=== PATIENT | female | born 1970 | race Caucasian/White ===

== ENCOUNTER → 2016-12-19 | Outpatient (CLI) | payer OTHER ==
[2016-12-18 15:40] VITALS: BMI 23.6
[2016-12-19 12:37] VITALS: BP 99/66; PULSE 80; RESP 18; TEMP 98.3
--- NOTE | 2016-12-19 13:08 | P.HPIM ---
History of Present Illness H&P Date: 12/19/16 Chief Complaint: low back and right leg pain This is a 46-year-old patient referred by Dr. Azul for chronic pain in low back and lateral aspect of RLE with numbness/tingling after back surgery in August 2016 for herniated disc. Patient has been taking medications from primary care physician including Flexeril, meloxicam, gabapentin medications with some relief. Patient denies adverse drug effects from medications. Patient also denies new-onset weakness, bowel/bladder incontinence, or any other signs or symptoms of cauda equina syndrome. There are no signs of acute intoxication, and no indications of medication diversion or overuse. Patient notes that pain worsens significantly with sitting and improves with standing, walking and medication. Patient has used several types of medications for pain, including NSAIDS, GABAPENTIN. Patient HAS had surgery (L5 laminectomy). Patient HAS NOT had injections previously. Patient HAS had physical therapy recently without relief. In addition to above, 13-point review of systems is also negative for chest pain , shortness of breath, changes in vision, changes in hearing, new onset weakness , abdominal pain, diarrhea, extreme fatigue, malaise, fever, skin changes, homicidal or suicidal ideation, or bowel or bladder incontinence. Vital Signs: Reviewed in EMR Gen: WDWN, AAOx3, NAD HEENT: NCAT, EOMI, hearing grossly normal Pulm: resp unlabored Abd: soft, NT, ND Neck: supple, trachea midline ROM in flexion lumbar spine: reduced ROM in extension lumbar spine: full Lumbar paravertebral tenderness: + R side Facet loading: neg SI joint tenderness: neg Marvin's test: neg Straight leg raise: + RLE at 5 degrees Neuro: CN II-XII grossly intact, muscle strength lower extremities PRESERVED Past Medical History Past Medical History: Musculoskeletal Disorder, Osteoarthritis (OA) Additional Past Medical History / Comment(s): LUMBAR DDD; HERNIATED DISC EXC 2016; PAIN DOWN RT SCIATIC, LEG; NT RT TOES OCC. OA KNEES. History of Any Multi-Drug Resistant Organisms: None Reported Past Surgical History: Back Surgery, Section, Orthopedic Surgery Additional Past Surgical History / Comment(s): EXC LUMBAR DISC 08/2016. RT KNEE SURG. Past Anesthesia/Blood Transfusion Reactions: No Reported Reaction Past Psychological History: No Psychological Hx Reported Smoking Status: Current every day smoker Past Alcohol Use History: None Reported Additional Past Alcohol Use History / Comment(s): SMOKES 1 PPD X20 YEARS Past Drug Use History: None Reported - Past Family History Mother Family Medical History: No Reported History Medications and Allergies Home Medications Medication Instructions Recorded Confirmed Type Gabapentin [Neurontin] 300 mg PO TID 12/19/16 12/19/16 History Ibuprofen 200 mg PO PRN 12/19/16 History Medroxyprogesterone Acetate 150 mg IM 12/19/16 History [Depo-Provera] Meloxicam 7.5 mg PO DAILY 12/19/16 12/19/16 History tiZANidine HCL 4 mg PO TID PRN 12/19/16 12/19/16 History Allergies Allergy/AdvReac Type Severity Reaction Status Date / Time No Known Allergies Allergy Verified 12/18/16 15:26 Physical Exam Vitals: Vital Signs Temp Pulse Resp BP Pulse Ox 12/19/16 12:34 98.3 F 80 18 99/66 97 Intake and Output 12/18/16 12/19/16 12/19/16 22:59 06:59 14:59 Other: Weight 58.513 kg Results Comments: MRI lumbar spine dated 10/31/2016 demonstrates mild facet degenerative changes bilaterally the L3-L4 level and preserved spinal canal. The L4-L5 level to broad-based disc bulge and mild central degenerative changes bilaterally but a preserved spinal canal and bilateral neural foramina but are patent. At L5-S1 level there is a new right-sided laminectomy defect with the persistent broad- based paracentral disc protrusion minimally effacing the anterior thecal sac. There is enhancing scar tissue surrounding the central right S1 nerve root at this level. Assessment and Plan (1) Lumbar disc herniation Status: Acute (2) Lumbar postlaminectomy syndrome Status: Acute (3) Epidural adhesions Status: Acute Plan: 1. Explanation: Opioid and psychological risk scores were reviewed. Diagnoses , prognoses, and multiple treatment options including but not limited to physical therapy, interventional therapies, adjuvant medical therapies, narcotic medication therapies, and surgery were discussed with the patient and all questions were answered to the patient's satisfaction. 2. Opioid agreement: no opioids prescribed today 3. Counseling: The patient was counseled extensively on BODY MASS INDEX, EXERCISE. Specifically, the patient was instructed regarding the importance of smoking cessation, weight control, and exercise in the context of both chronic pain and overall health. 4. Procedures: caudal ARTIE with lysis 5. Consultations: none 6. Investigations: none 7. Medications: none prescribed 8. Disposition: f/u for procedure as scheduled PQRS measures: 1-Patient's medications are documented in the chart. 2-Tobacco use is negative 3-Patient has not had a pneumococcal vaccine. 4-Advanced care planning discussed, patient unable to give. 5-Opioid contract NOT signed with the patient. 6-Pain positive, follow-up visit or procedure scheduled 7-Patient's blood pressure measured and documented, and patient will follow up with the primary care due to hypertension. 8-Patient's weight was measured, and body mass index ABOVE the normal limits, and counseling was done. Patient instructed to follow up with PCP. 9-Patient WAS NOT identified as an unhealthy alcohol user. Time with Patient: Greater than 30
== END ==
LOC: PNWHC3 12:16
PROVIDERS: ATTEND Anesthesiology
DX: M51.26 Other intervertebral disc displacement, lumbar region (principal); M96.1 Postlaminectomy syndrome, not elsewhere classified; G96.12 Meningeal adhesions (cerebral) (spinal); Z79.899 Other long term (current) drug therapy
CPT/HCPCS: 99211

== ENCOUNTER 2016-12-24 08:27 | Day surgery (SDC) | payer OTHER ==
[2016-12-20 15:27] VITALS: BMI 23.6
[~2016-12-24 08:27] MED LIST: LACTATED RINGERS 1,000 ML IV SCH
[2016-12-24 08:50] VITALS: TEMP 98.2
[2016-12-24] MEDS ORDERED: LACTATED RINGERS 1,000 ML IV ONE (09:00)
[2016-12-24] MEDS ORDERED: LIDOCAINE 1% 20 ML VIAL (10MG/ML) FOR IV START INTRADERMA ONE (09:00)
--- NOTE | 2016-12-24 09:29 | P.PCN ---
Date of Procedure: 12/24/16 Preoperative Diagnosis: Failed back surgery syndrome Postoperative Diagnosis: Same as above Procedure(s) Performed: Caudal epidural steroid injection under fluoroscopic guidance with lysis of adhesions Anesthesia: MAC (Moderate IV conscious sedation with Versed and fentanyl) Surgeon: Vladimir Aviles Pathology: none sent Condition: stable Disposition: PACU Description of Procedure: The patient was seen in the preoperative holding area consent was obtained then he was brought into the procedure room and placed in prone position. Skin was prepped with ChloraPrep and draped in a sterile manner. Lidocaine 1% was used to numb the skin up at the target point that was chosen as follows: The lateral view of fluoroscopy was used to identify the sacral hiatus and then after localizing the skin with lidocaine 1% I used 18-gauge epidural needle with a plastic sheath to go through the sacral hiatus and into the sacral canal and then injected 1 mL of Omnipaque for verification of needle tip position. After that the metal core of the needle was taken out and the plastic sheath was kept in the sacral canal. Then Racz catheter was introduced through the plastic sheath and into the epidural space at the sacral canal using the AP view of fluoroscopy up to L5-S1 level then I injected 2 MLS of Omnipaque which showed limited spread in the epidural space and after few back and forth movements of the Racz catheter I was able to introduce the needle one level higher to the L4- 5 level and then there was more spread of the Omnipaque after injecting 3 more mils of Omnipaque on the AP view of fluoroscopy. After that I injected 80 mg of Kenalog +2 MLS of Marcaine 0.25% +7 MLS of preservative-free normal saline to a total volume of 10 MLS in the epidural space. Patient tolerated procedure well. Of note: The Racz catheter was introduced to the right side of midline because most of the patient's pain is on the right side of the lower back and also down the right leg to the right foot . COMPLICATIONS: None.
[2016-12-24] MEDS ORDERED: IV FLUID CONTINUATION 1,000 ML IV ONE (09:34)
[2016-12-24 09:36] VITALS: RESP 16
--- NOTE | 2016-12-24 09:48 | FL ---
EXAMINATION TYPE: FL guided pain mgmt statistic DATE OF EXAM: 12/24/2016 CLINICAL HISTORY: Low back and sacral pain. TECHNIQUE: Fluoroscopy. COMPARISON: None. FINDINGS: Fluoroscopic guidance was provided during pain relief procedure performed by Dr. Aviles. A total of 14 seconds of fluoroscopic time was utilized during the procedure and two spot images are acquired. Images acquired shows needle localization at level of the sacrum from posterior inferior approach. IMPRESSION: As Above.
[2016-12-24 09:49] VITALS: BP 125/63; PULSE 70
== END 2016-12-24 10:03 | disposition home or self-care (01) ==
LOC: ORPAIN 08:27
PROVIDERS: ATTEND Anesthesiology
DX: M96.1 Postlaminectomy syndrome, not elsewhere classified (principal); M51.16 Intervertebral disc disorders with radiculopathy, lumbar region; M19.90 Unspecified osteoarthritis, unspecified site; F17.200 Nicotine dependence, unspecified, uncomplicated; Z79.899 Other long term (current) drug therapy
CPT/HCPCS: 81025; 62323; J2250; J3301; Q9965; J3010; C1894; 62264; 99152; 99153

== ENCOUNTER 2017-01-10 06:17 | Day surgery (SDC) | payer OTHER ==
[2017-01-09 09:15] VITALS: BMI 23.6
[2017-01-10 06:35] VITALS: TEMP 98
[2017-01-10] MEDS ORDERED: LACTATED RINGERS 1,000 ML IV ONE (06:38)
[2017-01-10] MEDS ORDERED: LIDOCAINE 1% 20 ML VIAL (10MG/ML) FOR IV START INTRADERMA ONE (06:45)
[2017-01-10] MEDS ORDERED: LACTATED RINGERS 1,000 ML IV SCH (07:00)
[2017-01-10] MEDS ORDERED: IV FLUID CONTINUATION 1,000 ML IV ONE (07:20)
--- NOTE | 2017-01-10 07:27 | P.PCN ---
Date of Procedure: 01/10/17 Procedure(s) Performed: PREOP DIAGNOSIS: 1- failed back surgery syndrome POSTOP DIAGNOSIS:1- failed back surgery syndrome PROCEDURE: Caudal epidural steroid injection with epidurolysis and epidurogram under fluoroscopic guidance ANESTHESIA: Local with 1% lidocaine 3 ml ; IV sedation with Versed 2 mg and fentanyl 150 g EBL: Minimal. PROCEDURE INDICATION: The patient with post-laminectomy syndrome with low back pain and radiculopathy radiating down in both legs, here for a caudal epidural steroid injection with epidurolysis. PROCEDURE DESCRIPTION: The patient was seen and identified in the preoperative area. Risks, benefits, complications, and alternatives were discussed with the patient. The patient agreed to proceed with the procedure and signed the consent. IV was started, and vital signs were stable. Patient was taken to the OR and time out was completed. The patient was placed in the prone position on procedure table and a pillow was placed under the abdomen to reduce lumbar lordosis. The lumbosacral area was prepped and draped in the usual sterile fashion. Vital signs were closely monitored during the procedure. lateral view and the anterior-posterior plates of the sacrum were identified with infiltration of the area overlying the sacral hiatus with 1% lidocaine .A 17 gauge RK epidural needle was used to advance through the sacral hiatus into the caudal epidural space. Omnipaque 180 dye. 2cc was injected and the position of the needle was verified to be in the midline. A Racz catheter was introduced into the epidural space and was advanced towards the L5-S1 interspace under direct fluoroscopic guidance. Multiple passes were made with the catheter for lysis of epidural adhesions. Kenalog 80 mg with 3ml of preservative free Lidocaine 1% and 5 ml of preservative free normal saline was injected slowly. Additional spread was seen to L4 under fluoroscopy. The needle and the catheter were withdrawn intact. EPIDUROGRAM: Omnipaque 180 mg dye 2 ml was injected with spread of the dye into the caudal epidural space and with spread cutoff at L5 prior to epidurolysis. Post epidurolysis dye 2 ml was injected and spread was seen to L3- 4.There was further spread of the solution together with the dye above the L3 COMPLICATIONS: None. DISPOSITION / PLANS: The patient was placed in a supine position and transferred to the recovery area in a stable condition for observation and was discharged from the recovery room after meeting discharge criteria. Home discharge instructions given to the patient by the staff. The patient was reexamined prior to discharge. The patient will schedule a follow up in the clinic in 2-4 weeks.
[2017-01-10 07:43] VITALS: BP 130/86; PULSE 75; RESP 18
--- NOTE | 2017-01-10 08:16 | FL ---
EXAMINATION TYPE: FL guided pain mgmt statistic DATE OF EXAM: 01/10/2017 CLINICAL HISTORY: Low back and sacral pain. TECHNIQUE: Fluoroscopy. COMPARISON: None. FINDINGS: Fluoroscopic guidance was provided during pain relief procedure performed by Dr. Santacruz . A total of 8 seconds of fluoroscopic time was utilized during the procedure and two spot images ar e acquired. Images acquired shows needle localization at level of sacrum from posterior inferior rosanna coreas. IMPRESSION: As Above.
== END 2017-01-10 08:00 | disposition home or self-care (01) ==
LOC: ORPAIN 06:17
PROVIDERS: ATTEND Specialist
DX: M96.1 Postlaminectomy syndrome, not elsewhere classified (principal)
CPT/HCPCS: 81025; 62264; J2250; J1100; Q9965; J3010; C1894; 99152

== ENCOUNTER 2017-02-27 07:53 | Day surgery (SDC) | payer OTHER ==
[2017-02-25 10:56] VITALS: BMI 23.8
[2017-02-27 08:57] VITALS: RESP 16; TEMP 98.6
--- NOTE | 2017-02-27 09:49 | P.PCN ---
Date of Procedure: 02/27/17 Preoperative Diagnosis: Failed back surgery syndrome Postoperative Diagnosis: Same as above Procedure(s) Performed: Caudal epidural steroid injection under fluoroscopic guidance with lysis of adhesions Anesthesia: MAC (Conscious sedation with IV fentanyl and Versed) Surgeon: Vladimir Aviles Pathology: none sent Condition: stable Disposition: PACU Description of Procedure: The patient was seen in the preoperative holding area consent was obtained then he was brought into the procedure room and placed in prone position. Skin was prepped with ChloraPrep and draped in a sterile manner. Lidocaine 1% was used to numb the skin up at the target point that was chosen as follows: The lateral view of fluoroscopy was used to identify the sacral hiatus and then after localizing the skin with lidocaine 1% I used 18-gauge epidural needle with a plastic sheath to go through the sacral hiatus and into the sacral canal and then injected 1 mL of Omnipaque for verification of needle tip position. After that the metal core of the needle was taken out and the plastic sheath was kept in the sacral canal. Then Racz catheter was introduced through the plastic sheath and into the epidural space at the sacral canal using the AP view of fluoroscopy up to L5-S1 level then I injected 2 MLS of Omnipaque which showed limited spread in the epidural space and after few back and forth movements of the Racz catheter there was more spread of the Omnipaque after injecting 3 more mils of Omnipaque on the AP view of fluoroscopy. After that I injected 40 mg of Kenalog +2 MLS of Marcaine 0.25% +7 MLS of preservative-free normal saline to a total volume of 10 MLS in the epidural space. Patient tolerated procedure well. Of note: The Racz catheter was introduced to the right side of midline because most of the patient's pain is on the right side of the lower back and also down the right leg to the right foot . COMPLICATIONS: None. DISPOSITION / PLANS: The patient was placed in a supine position and transferred to the recovery area in a stable condition for observation and was discharged from the recovery room after meeting discharge criteria. Home discharge instructions given to the patient by the staff. The patient was reexamined prior to discharge. The patient will schedule a follow up in the clinic in 2-4 weeks.
[2017-02-27] MEDS ORDERED: IV FLUID CONTINUATION 1,000 ML IV ONE (09:53)
[2017-02-27 10:09] VITALS: BP 117/78; PULSE 78
--- NOTE | 2017-02-27 12:11 | FL ---
Fluoroscopy INDICATION: Pain FINDINGS: Fluoroscopy time: 6 seconds. Images obtained: 2. IMPRESSIONS: 1. Documentation of fluoroscopy.
== END 2017-02-27 10:23 | disposition home or self-care (01) ==
LOC: ORPAIN 07:53
PROVIDERS: ATTEND Anesthesiology
DX: M96.1 Postlaminectomy syndrome, not elsewhere classified (principal); G96.12 Meningeal adhesions (cerebral) (spinal)
CPT/HCPCS: 81025; 62264; J2250; J3301; Q9965; J3010; C1894; 62323; 99152

== ENCOUNTER → 2017-03-25 | Outpatient (CLI) | payer OTHER ==
[2017-03-25 12:54] VITALS: BP 124/83; PULSE 103; RESP 18
--- NOTE | 2017-03-25 13:38 | P.PN ---
Subjective Progress Note Date: 03/25/17 Principal diagnosis: Lower back pain due to to lumbar spondylosis and right lumbar radiculopathy status post lumbar laminectomy. Vision had 3 caudal epidural steroid injection with lysis of adhesions and it looks like they did work for her. Pain today is only 2 out of 10 and it is mostly in the right lower back area with no radiation to the lower extremities. The patient denies any paresthesia in the lower extremities or any weakness. Objective - Vital Signs Vital signs: Vital Signs Temp Pulse 103 H 03/25/17 12:45 Resp 18 03/25/17 12:45 BP 124/83 03/25/17 12:45 Pulse Ox 103 H 03/25/17 12:45 Intake & Output 03/24/17 03/25/17 03/25/17 18:59 06:59 18:59 Weight 58.967 kg - Constitutional General appearance: Present: average body habitus, cooperative, no acute distress - EENT Eyes: Absent: abnormal pupil, anicteric sclerae, disc margins sharp, edentulous , EOMI, PERRLA, fundus normal, photophobia, dentition normal, poor dentition, ptosis, scleral icterus, normal appearance ENT: Absent: hard of hearing, hearing grossly normal, NA/AT, normal oropharynx, other, pharyngeal erythema, thrush, tonsillar exudates, tonsillar swelling - Respiratory Respiratory: bilateral: CTA - Cardiovascular Rhythm: regular - Psychiatric Psychiatric: Present: A&O x's 3, appropriate affect, intact judgment & insight Assessment and Plan Plan: Oriented to-year-old female with right lower back pain that has improved after 3 Epidural steroid injections. She is status post lumbar laminectomy in August 2016. Her pain is mild today and her neurologic examination is within normal limits. She does not have any tenderness around the right sacroiliac joint and no allodynia to touch around her small laminectomy scar. The patient will be seen in our clinic on an as-needed basis.
== END ==
LOC: PNWHC3 12:32
PROVIDERS: ATTEND Anesthesiology
DX: M47.26 Other spondylosis with radiculopathy, lumbar region (principal); Z79.891 Long term (current) use of opiate analgesic
CPT/HCPCS: 99211

== ENCOUNTER → 2017-04-23 | Outpatient (CLI) | payer OTHER ==
[2017-04-23 14:24] VITALS: BP 122/77; PULSE 91; RESP 18; TEMP 98.9
--- NOTE | 2017-04-23 14:47 | P.PN ---
Progress Note - Text Progress Note Date: 04/23/17 Patient returns for followup for chronic back pain with radiation to RLE after recent back surgery in August 2016. Patient recently underwent caudal ARTIE with lysis x 2 and caudal ARTIE x 1, all of which have given her relief for only one week apiece. Patient continues on [place] medications for pain from PCP with good relief. Patient denies adverse drug effects from medications. Today, pt denies new-onset weakness, bowel/bladder incontinence, or any other signs or symptoms of cauda equina syndrome. There are no signs of acute intoxication, and no indications of medication diversion or overuse. In addition to above, 13-point review of systems is also negative for chest pain , shortness of breath, changes in vision, changes in hearing, new onset weakness , abdominal pain, diarrhea, extreme fatigue, malaise, fever, skin changes, homicidal or suicidal ideation, or bowel or bladder incontinence. Vital Signs: Reviewed in EMR Gen: WDWN, AAOx3, NAD HEENT: NCAT, EOMI, hearing grossly normal Pulm: resp unlabored Abd: soft, NT, ND Neck: supple, trachea midline ROM in flexion lumbar spine: reduced ROM in extension lumbar spine: reduced Lumbar paravertebral tenderness: + Facet loading: + bilateral, R > L SI joint tenderness: + RLE Mavrin's test: + R side Straight leg raise: + RLE at 10 degrees Lower extremity: decreased ROM dorsiflexion/plantarflexion strength, hip flexion/extension, and knee flexion/extension secondary to pain Neuro: CN II-XII grossly intact, muscle strength lower extremities PRESERVED Imaging: Reviewed in EMR Assessment: 1. lumbar PLPS 2. lumbar spondylosis 3. lumbar radiculopathy Plan: 1. Explanation: Opioid and psychological risk scores were reviewed. Diagnoses , prognoses, and multiple treatment options including but not limited to physical therapy, interventional therapies, adjuvant medical therapies, narcotic medication therapies, and surgery were discussed with the patient and all questions were answered to the patient's satisfaction. 2. Opioid agreement: no opioids prescribed today 3. Counseling: The patient was counseled extensively on SMOKING CESSATION, BODY MASS INDEX, EXERCISE. Specifically, the patient was instructed regarding the importance of smoking cessation, weight control, and exercise in the context of both chronic pain and overall health. 4. Procedures: SCS DVD given 5. Consultations: None 6. Investigations: None 7. Medications: none prescribed 8. Disposition: Patient wishes to see neurosurgeon for second opinion and is considering undergoing lumbar fusion. SCS DVD given, patient to consider and discuss with spine surgeon before undergoing fusion procedure. She will call for next appointment if needed. PQRS measures: 1-Patient's medications are documented in the chart. 2-Tobacco use is positive, counseling given 3-Patient has not had a pneumococcal vaccine. 4-Advanced care planning discussed, patient unable to give. 5-Opioid contract NOT signed with the patient. 6-Pain positive, follow-up visit or procedure scheduled 7-Patient's blood pressure measured and documented, and patient will follow up with the primary care due to hypertension. 8-Patient's weight was measured, and body mass index WNL. 9-Patient WAS NOT identified as an unhealthy alcohol user.
== END | disposition home or self-care (01) ==
LOC: PNWHC3 14:08
PROVIDERS: ATTEND Anesthesiology
DX: G89.29 Other chronic pain (principal); M54.9 Dorsalgia, unspecified; M96.1 Postlaminectomy syndrome, not elsewhere classified; M47.26 Other spondylosis with radiculopathy, lumbar region; Z79.899 Other long term (current) drug therapy
CPT/HCPCS: 99211

== ENCOUNTER 2017-10-12 15:01 | Inpatient (IN) | payer OTHER ==
[2017-10-12] MEDS ORDERED: SODIUM CHLORIDE 0.9% 1,000 ML IV STA (15:42)
[2017-10-12] MEDS ORDERED: ONDANSETRON 4 MG/2 ML VIAL IVP STA (15:52)
[2017-10-12 16:44] LABS: Appearance,Urine Clear (Clear); Bilirubin,Urine Negative (Negative); Blood,Urine Negative (Negative); Color,Urine Light Yellow; Glucose,Urine (UA) Negative (Negative); Ketones,Urine Negative (Negative); Leukocyte Esterase,Urine Negative (Negative); Nitrite,Urine Negative (Negative); Protein,Urine Negative (Negative); Specific Gravity,Urine 1.015 (1.001-1.035); Urobilinogen,Urine <2.0 mg/dL (<2.0)
--- NOTE | 2017-10-12 16:52 | ED ---
Abdominal Pain HPI - General Chief Complaint: Abdominal Pain Stated Complaint: Cdiff Time Seen by Provider: 10/12/17 15:41 Source: patient, RN notes reviewed Mode of arrival: ambulatory Limitations: no limitations - History of Present Illness Initial Comments: This a 47-year-old female presents emergency Department chief complaint of abdominal pain. Patient states she was admitted at [facility] from Saturday until Saturday. She states that she had acute pancreatitis and told her that her gallbladder had sludge and may need to be removed. Patient was discharged and then received a phone call stating that she had C. diff. Patient was started on Flagyl and states that she's been taken it but symptoms at work home having worsening. She states she has worsening pain and nausea still having diarrhea at least 10 episodes daily loose watery. She states that they cannot figure what causes C. diff for her pancreatitis. She denies any alcohol abuse. She does admit to some urinary frequency no dysuria no hematuria no flank pain. She states her pain is in the epigastric region denies chest pain or shortness breath. - Related Data Home Medications Medication Instructions Recorded Confirmed Gabapentin [Neurontin] 300 mg PO TID 12/19/16 10/12/17 Ibuprofen 200 mg PO Q4-6H PRN 12/19/16 10/12/17 Medroxyprogesterone Acetate 150 mg IM Q90D 12/19/16 10/12/17 [Depo-Provera] tiZANidine HCL 4 mg PO TID PRN 12/19/16 10/12/17 Acetaminophen Tab [Tylenol Tab] 1,000 mg PO Q6HR PRN 12/24/16 10/12/17 Sertraline [Zoloft] 100 mg PO DAILY 10/12/17 10/12/17 metroNIDAZOLE [Flagyl] 500 mg PO TID 10/12/17 10/12/17 Allergies Allergy/AdvReac Type Severity Reaction Status Date / Time No Known Allergies Allergy Verified 10/12/17 15:20 Review of Systems ROS Statement: Those systems with pertinent positive or pertinent negative responses have been documented in the HPI. ROS Other: All systems not noted in ROS Statement are negative. Past Medical History Past Medical History: Musculoskeletal Disorder, Osteoarthritis (OA) Additional Past Medical History / Comment(s): LUMBAR DDD; HERNIATED DISC EXC 2016; PAIN DOWN RT SCIATIC, LEG; NT RT TOES OCC. OA KNEES. PANCREATITIS History of Any Multi-Drug Resistant Organisms: C-DIFF Date of last positivie culture/infection: 2017 MDRO Source:: STOOL Past Surgical History: Back Surgery, Section, Orthopedic Surgery Additional Past Surgical History / Comment(s): EXC LUMBAR DISC 08/2016. RT KNEE SURG. Past Anesthesia/Blood Transfusion Reactions: No Reported Reaction Past Psychological History: No Psychological Hx Reported Smoking Status: Current every day smoker Past Alcohol Use History: None Reported Past Drug Use History: None Reported - Past Family History Mother Family Medical History: No Reported History General Exam Limitations: no limitations General appearance: alert, in no apparent distress Head exam: Present: atraumatic, normocephalic, normal inspection Respiratory exam: Present: normal lung sounds bilaterally. Absent: respiratory distress, wheezes, rales, rhonchi, stridor Cardiovascular Exam: Present: regular rate, normal rhythm, normal heart sounds. Absent: systolic murmur, diastolic murmur, rubs, gallop, clicks GI/Abdominal exam: Present: soft, tenderness (Moderate epigastric), normal bowel sounds. Absent: distended, guarding, rebound, rigid Back exam: Absent: CVA tenderness (R), CVA tenderness (L) Skin exam: Present: warm, dry, intact, normal color. Absent: rash Course Vital Signs 10/12/17 15:16 Temperature 98.5 F Pulse Rate 80 Respiratory 16 Rate Blood Pressure 120/71 O2 Sat by Pulse 98 Oximetry Medical Decision Making - Lab Data Result diagrams: 10/12/17 17:09 10/12/17 17:09 Lab Results 10/12/17 10/12/17 10/12/17 Range/Units 16:35 16:35 17:09 WBC 12.9 H (3.8-10.6) k/uL RBC 4.02 (3.80-5.40) m/uL Hgb 12.9 (11.4-16.0) gm/dL Hct 40.2 (34.0-46.0) % MCV 100.0 (80.0-100.0) fL MCH 32.2 (25.0-35.0) pg MCHC 32.2 (31.0-37.0) g/dL RDW 14.9 (11.5-15.5) % Sodium (137-145) mmol/L Potassium (3.5-5.1) mmol/L Chloride (98-107) mmol/L Carbon Dioxide (22-30) mmol/L Anion Gap mmol/L BUN (7-17) mg/dL Creatinine (0.52-1.04) mg/dL Est GFR (CKD-EPI)AfAm (>60 ml/min/1.73 sqM) Est GFR (CKD-EPI)NonAf (>60 ml/min/1.73 sqM) Glucose (74-99) mg/dL Calcium (8.4-10.2) mg/dL Total Bilirubin (0.2-1.3) mg/dL AST (14-36) U/L ALT (9-52) U/L Alkaline Phosphatase (38-126) U/L Total Protein (6.3-8.2) g/dL Albumin (3.5-5.0) g/dL Amylase (30-110) U/L Lipase (23-300) U/L Urine Color Light Yellow Urine Appearance Clear (Clear) Urine pH 5.0 (5.0-8.0) Ur Specific [place] 1.015 (1.001-1.035) Urine Protein Negative (Negative) Urine Glucose (UA) Negative (Negative) Urine Ketones Negative (Negative) Urine Blood Negative (Negative) Urine Nitrite Negative (Negative) Urine Bilirubin Negative (Negative) Urine Urobilinogen <2.0 (<2.0) mg/dL Ur Leukocyte Esterase Negative (Negative) Urine HCG, Qual Not Detected (Not Detectd) 10/12/17 Range/Units 17:09 WBC (3.8-10.6) k/uL RBC (3.80-5.40) m/uL Hgb (11.4-16.0) gm/dL Hct (34.0-46.0) % MCV (80.0-100.0) fL MCH (25.0-35.0) pg MCHC (31.0-37.0) g/dL RDW (11.5-15.5) % Sodium 140 (137-145) mmol/L Potassium 3.6 (3.5-5.1) mmol/L Chloride 107 (98-107) mmol/L Carbon Dioxide 21 L (22-30) mmol/L Anion Gap 12 mmol/L BUN 15 (7-17) mg/dL Creatinine 0.50 L (0.52-1.04) mg/dL Est GFR (CKD-EPI)AfAm >90 (>60 ml/min/1.73 sqM) Est GFR (CKD-EPI)NonAf >90 (>60 ml/min/1.73 sqM) Glucose 80 (74-99) mg/dL Calcium 9.0 (8.4-10.2) mg/dL Total Bilirubin 0.2 (0.2-1.3) mg/dL AST 13 L (14-36) U/L ALT 27 (9-52) U/L Alkaline Phosphatase 56 (38-126) U/L Total Protein 5.6 L (6.3-8.2) g/dL Albumin 3.4 L (3.5-5.0) g/dL Amylase 331 H* (30-110) U/L Lipase 2736 H (23-300) U/L Urine Color Urine Appearance (Clear) Urine pH (5.0-8.0) Ur Specific [place] (1.001-1.035) Urine Protein (Negative) Urine Glucose (UA) (Negative) Urine Ketones (Negative) Urine Blood (Negative) Urine Nitrite (Negative) Urine Bilirubin (Negative) Urine Urobilinogen (<2.0) mg/dL Ur Leukocyte Esterase (Negative) Urine HCG, Qual (Not Detectd) Disposition Clinical Impression: Pancreatitis, C. difficile diarrhea Disposition: ADMITTED IP TO THIS [facility] Condition: Stable Referrals: Dexter Meadows DO [Primary Care Provider] - 1-2 days
[2017-10-12] MEDS ORDERED: KETOROLAC 30 MG/ML 1 ML VIAL IVP STA (17:15)
[2017-10-12 17:30] LABS: ALT 27 U/L (9-52); AST 13 U/L (14-36); Albumin 3.4 g/dL (3.5-5.0); Alkaline Phosphatase 56 U/L (38-126); Anion Gap 12 mmol/L; Basophils # (A) 0.1 k/uL (0-0.2); Basophils % (A) 1 %; Blood Urea Nitrogen 15 mg/dL (7-17); Carbon Dioxide 21 mmol/L (22-30); Chloride 107 mmol/L (98-107); Eosinophils # (A) 0.3 k/uL (0-0.7); Eosinophils % (A) 2 %; Glucose 80 mg/dL (74-99); HCT 40.2 % (34.0-46.0); HGB 12.9 gm/dL (11.4-16.0); Lymphocytes # (A) 2.4 k/uL (1.0-4.8); Lymphocytes % (A) 18 %; MCH 32.2 pg (25.0-35.0); MCHC 32.2 g/dL (31.0-37.0); Macrocytosis Slight; Mean Platelet Volume 6.9; Monocytes # (A) 0.8 k/uL (0-1.0); Monocytes % (A) 6 %; Neutrophils # (A) 9.2 k/uL (1.3-7.7); Neutrophils % (A) 71 %; Platelet Count 346 k/uL (150-450); Potassium 3.6 mmol/L (3.5-5.1); RBC 4.02 m/uL (3.80-5.40); RDW 14.9 % (11.5-15.5); Sodium 140 mmol/L (137-145); Total Bilirubin 0.2 mg/dL (0.2-1.3); Total Protein 5.6 g/dL (6.3-8.2); WBC 12.9 k/uL (3.8-10.6)
[2017-10-12 17:39] LABS: Amylase 331 U/L (30-110); Lipase 2736 U/L (23-300)
[2017-10-12] MEDS ORDERED: NALOXONE 0.4 MG/ML 1 ML VIAL IV PRN (18:05)
[2017-10-12] MEDS ORDERED: ONDANSETRON 4 MG/2 ML VIAL IVP PRN (18:05)
[2017-10-12] MEDS ORDERED: tiZANidine 4 MG TAB PO PRN (18:06)
[2017-10-12] MEDS: MORPHINE SULFATE 2 MG/ML SYRINGE IV PRN ×2 (19:30→23:53)
[2017-10-12] MEDS: SODIUM CHLORIDE 0.9% 1,000 ML IV SCH (19:30)
[2017-10-12] MEDS: NICOTINE 21MG/24HR PATCH TRANSDERM SCH (21:26)
[2017-10-12] MEDS: GABAPENTIN 300 MG CAP PO SCH (21:26)
[2017-10-12] MEDS ORDERED: metroNIDAZOLE 500 MG TAB PO SCH (22:00)
--- NOTE | 2017-10-12 22:14 | P.HPIM ---
History of Present Illness H&P Date: 10/12/17 Chief Complaint: Abdominal pain Patient is a 47-year-old female with a known history of osteoarthritis and lumbar disc degenerative disease came to ER with complaints of abdominal pain. Abdominal pain is mainly in the epigastric region. Patient is also having diarrhea last this afternoon and is watery. Patient was a admitted at [facility] from Saturday until Saturday. She states that she had acute pancreatitis and told her that her gallbladder had sludge and may need to be removed. Patient was discharged and then received a phone call stating that she had C. diff. Patient was started on Flagyl and states that she's been taken it but symptoms at work home having worsening. She states she has worsening pain and nausea still having diarrhea at least 10 episodes daily loose watery. Patient does have some subjective fevers. No chills. She denies any alcohol abuse. She does admit to some urinary frequency no dysuria no hematuria no flank pain. She states her pain is in the epigastric region denies chest pain or shortness breath. Patient does not have any prior history of C. diff infection. Denied any recent illnesses or sick contacts. Patient has been stressful recently with her job. Patient had workup done at [facility] including CT abdomen and pelvis ultrasound and x-ray. Patient was seen by Dr. Porter at [facility]. WBC 12.9 Amylase 331 Lipase 2736 Review of Systems Constitutional: Patient does have subjective fevers and no chills. A mayorga does have generalized weakness. Abdomen: Patient does have abdominal pain epigastric. Diarrhea and nausea. Cardiovascular: Patient denies any chest pain or short of breath no palpitations. Respiratory: patient denied any cough is from production. No shortness of breath Neurologic: Patient denied any numbness or tingling headache. Musculoskeletal: Patient denies any complaints of joint swelling or deformity. Skin: Negative Psychiatric: Negative Endocrine: No heat or cold intolerance. No recent weight gain. Genitourinary: No dysuria or hematuria. All other 14 point ROS negative except the above Past Medical History Past Medical History: Musculoskeletal Disorder, Osteoarthritis (OA) Additional Past Medical History / Comment(s): LUMBAR DDD; HERNIATED DISC EXC 2016; PAIN DOWN RT SCIATIC, LEG; NT RT TOES OCC. OA KNEES. PANCREATITIS History of Any Multi-Drug Resistant Organisms: C-DIFF Date of last positivie culture/infection: 2018 MDRO Source:: STOOL Past Surgical History: Back Surgery, Section, Orthopedic Surgery Additional Past Surgical History / Comment(s): EXC LUMBAR DISC 08/2016. RT KNEE SURG, wisdom tooth Past Anesthesia/Blood Transfusion Reactions: No Reported Reaction Past Psychological History: Depression Smoking Status: Current every day smoker Past Alcohol Use History: None Reported Additional Past Alcohol Use History / Comment(s): SMOKES 1 PPD X30 YEARS Past Drug Use History: None Reported - Past Family History Mother Family Medical History: Myocardial Infarction (AL), Rheumatoid Arthritis (RA) Medications and Allergies Home Medications Medication Instructions Recorded Confirmed Type Gabapentin [Neurontin] 300 mg PO TID 12/19/16 10/12/17 History Ibuprofen 200 mg PO Q4-6H PRN 12/19/16 10/12/17 History Medroxyprogesterone Acetate 150 mg IM Q84D 12/19/16 10/12/17 History [Depo-Provera] tiZANidine HCL 4 mg PO Q8H PRN 12/19/16 10/12/17 History Acetaminophen Tab [Tylenol Tab] 1,000 mg PO Q6HR PRN 12/24/16 10/12/17 History Meloxicam [Mobic] 7.5 mg PO DAILY 10/12/17 10/12/17 History Sertraline [Zoloft] 100 mg PO DAILY 10/12/17 10/12/17 History metroNIDAZOLE [Flagyl] 500 mg PO TID 10/12/17 10/12/17 History Allergies Allergy/AdvReac Type Severity Reaction Status Date / Time No Known Allergies Allergy Verified 10/12/17 18:09 Physical Exam Vitals: Vital Signs Temp Pulse Pulse Resp BP BP Pulse Ox 10/12/17 19:00 98.4 F 75 18 127/71 95 10/12/17 18:21 99.3 F 74 16 133/79 100 10/12/17 15:16 98.5 F 80 16 120/71 98 Intake and Output 10/12/17 10/12/17 10/12/17 06:59 14:59 22:59 Other: Voiding Method Toilet Weight 56.699 kg PHYSICAL EXAMINATION: Patient is lying in the bed comfortably, no acute distress, awake alert and oriented.. HEENT: Normocephalic. Neck is supple. Pupils reactive. Nostrils clear. Oral cavity is moist. Ears reveal no drainage. Neck reveals no JVD, carotid bruits, or thyromegaly. CHEST EXAMINATION: Trachea is central. Symmetrical expansion. Bibasilar diminished air entry Lung longoria clear to auscultation and percussion. CARDIAC: Normal S1, S2 with no gallops. No murmurs ABDOMEN: Soft. Epigastric tenderness. Bowel sounds normal. No organomegaly. No abdominal bruits. Extremities: reveal no edema. No clubbing or cyanosis Neurologically awake, alert, oriented x3 with well-coordinated movements. No focal deficits noted Skin: No rash or skin lesions. Psychiatric: Cooperative. Nonsuicidal Musculoskeletal: No joint swelling or deformity. Normal range of motion. Results CBC & Chem 7: 10/12/17 17:09 10/12/17 17:09 Labs: Abnormal Lab Results - Last 24 Hours (Table) 10/12/17 10/12/17 Range/Units 17: 17:09 WBC 12.9 H (3.8-10.6) k/uL Neutrophils # 9.2 H (1.3-7.7) k/uL Carbon Dioxide 21 L (22-30) mmol/L Creatinine 0.50 L (0.52-1.04) mg/dL AST 13 L (14-36) U/L Total Protein 5.6 L (6.3-8.2) g/dL Albumin 3.4 L (3.5-5.0) g/dL Amylase 331 H* (30-110) U/L Lipase 2736 H (23-300) U/L Thrombosis Risk Factor Assmnt - DVT/VTE Prophylaxis DVT/VTE Prophylaxis: Pharmacologic Prophylaxis ordered - Choose All That Apply Any of the Below Risk Factors Present?: Yes Each Factor Represents 1 point: Age 41-60 years, Oral contraceptives or hormone replacement therapy Other Risk Factors: No Thrombosis Risk Factor Assessment Total Risk Factor Score: 2 Thrombosis Risk Factor Assessment Level: Low Risk Assessment and Plan Assessment: Diarrhea and abdominal pain due to Acute C. diff colitis Acute pancreatitis. Exact etiology unknown Gallbladder sludge as per recent workup at [facility] Osteoarthritis Right sciatic nerve pain Lumbar disc degenerative disease with laminectomy on 2016 Current every day smoker. 30 pack years Depression DVT prophylaxis Plan: Patient will be continued on IV hydration and metronidazole 500 mg IV every 8 hourly. Symptomatic management for nausea and vomiting. We will follow up lipase and amylase. Consider GI evaluation if needed. Smoking cessation has been counseled extensively. Continue with the pain management. Further recommendations based on the clinical course Time with Patient: Greater than 30
[2017-10-12] MEDS: HEPARIN SODIUM,PORCINE 5,000 UNIT/ML 1 ML VIAL SQ SCH (23:53)
[2017-10-13] MEDS ORDERED: metroNIDAZOLE-NS PMX 500 MG in SALINE 1 100ML.BAG IVPB SCH
[2017-10-13] MEDS: KETOROLAC 30 MG/ML 1 ML VIAL IVP PRN ×3 (02:03→20:09)
[2017-10-13] MEDS: MORPHINE SULFATE 2 MG/ML SYRINGE IV PRN ×5 (04:29→22:25)
[2017-10-13] MEDS: SODIUM CHLORIDE 0.9% 1,000 ML IV SCH ×3 (04:31→23:31)
[2017-10-13] MEDS: metroNIDAZOLE-NS PMX 500 MG in SALINE 1 100ML.BAG IVPB SCH ×3 (06:15→22:25)
[2017-10-13 06:57] LABS: Basophils % (A) 0 %; Eosinophils # (A) 0.4 k/uL (0-0.7); Eosinophils % (A) 4 %; HCT 34.9 % (34.0-46.0); HGB 11.1 gm/dL (11.4-16.0); Lymphocytes # (A) 2.4 k/uL (1.0-4.8); Lymphocytes % (A) 21 %; MCH 31.3 pg (25.0-35.0); MCHC 31.7 g/dL (31.0-37.0); MCV 98.5 fL (80.0-100.0); Mean Platelet Volume 7.3; Monocytes # (A) 0.6 k/uL (0-1.0); Monocytes % (A) 5 %; Neutrophils # (A) 7.7 k/uL (1.3-7.7); Neutrophils % (A) 69 %; Platelet Count 279 k/uL (150-450); RBC 3.54 m/uL (3.80-5.40); RDW 14.5 % (11.5-15.5); WBC 11.2 k/uL (3.8-10.6)
[2017-10-13 07:08] LABS: Amylase 209 U/L (30-110); Anion Gap 9 mmol/L; Blood Urea Nitrogen 16 mg/dL (7-17); Calcium 8.2 mg/dL (8.4-10.2); Carbon Dioxide 21 mmol/L (22-30); Chloride 109 mmol/L (98-107); Glucose 68 mg/dL (74-99); Lipase 1465 U/L (23-300); Potassium 3.4 mmol/L (3.5-5.1); Sodium 139 mmol/L (137-145)
[2017-10-13] MEDS: NICOTINE 21MG/24HR PATCH TRANSDERM SCH (08:29)
[2017-10-13] MEDS: HEPARIN SODIUM,PORCINE 5,000 UNIT/ML 1 ML VIAL SQ SCH ×3 (08:29→23:31)
[2017-10-13] MEDS: GABAPENTIN 300 MG CAP PO SCH ×3 (08:29→22:25)
[2017-10-13] MEDS: SERTRALINE 100 MG TAB PO SCH (08:30)
--- NOTE | 2017-10-13 23:03 | P.PN ---
Subjective Progress Note Date: 10/13/17 Principal diagnosis: Acute pancreatitis and C. diff infection Patient is a 47-year-old female with a known history of osteoarthritis and lumbar disc degenerative disease came to ER with complaints of abdominal pain. Abdominal pain is mainly in the epigastric region. Patient is also having diarrhea last this afternoon and is watery. Patient was a admitted at [facility] from Saturday until Saturday. She states that she had acute pancreatitis and told her that her gallbladder had sludge and may need to be removed. Patient was discharged and then received a phone call stating that she had C. diff. Patient was started on Flagyl and states that she's been taken it but symptoms at work home having worsening. She states she has worsening pain and nausea still having diarrhea at least 10 episodes daily loose watery. Patient does have some subjective fevers. No chills. She denies any alcohol abuse. She does admit to some urinary frequency no dysuria no hematuria no flank pain. She states her pain is in the epigastric region denies chest pain or shortness breath. Patient does not have any prior history of C. diff infection. Denied any recent illnesses or sick contacts. Patient has been stressful recently with her job. Patient had workup done at [facility] including CT abdomen and pelvis ultrasound and x-ray. Patient was seen by Dr. Porter at [facility]. WBC 12.9 Amylase 331 Lipase 2736 10/13/2017 Patient is still complaining of abdominal pain and not tolerating oral diet. Lipase level is trending down otherwise. No diarrhea since yesterday. No fever no chills. Patient is being continued on IV fluids and antibiotics in the form of IV metronidazole. No complaints of chest pain or shortness of breath. No headache or dizziness or lightheadedness. All other review of systems negative except the above Current medications reviewed Objective - Vital Signs Vital signs: Vital Signs Temp 98.6 F 10/13/17 19:55 Pulse 67 10/13/17 19:55 Resp 16 10/13/17 19:55 BP 129/81 10/13/17 19:55 Pulse Ox 97 10/13/17 19:55 Intake & Output 10/13/17 10/13/17 10/14/17 06:59 18:59 06:59 Intake Total 0 Output Total 200 1100 200 Balance -200 -1100 -200 Intake: Oral 0 Output: Urine 200 1100 200 - Exam PHYSICAL EXAMINATION: Patient is lying in the bed comfortably, no acute distress, awake alert and oriented.. HEENT: Normocephalic. Neck is supple. Pupils reactive. Nostrils clear. Oral cavity is moist. Ears reveal no drainage. Neck reveals no JVD, carotid bruits, or thyromegaly. CHEST EXAMINATION: Trachea is central. Symmetrical expansion. Lung longoria clear to auscultation and percussion. CARDIAC: Normal S1, S2 with no gallops. No murmurs ABDOMEN: Soft. Epigastric tenderness. Bowel sounds normal. No organomegaly. No abdominal bruits. Extremities: reveal no edema. No clubbing or cyanosis Neurologically awake, alert, oriented x3 with well-coordinated movements. No focal deficits noted Skin: No rash or skin lesions. Psychiatric: Coperative. Nonsuicidal Musculoskeletal: No joint swelling or deformity. Normal range of motion. - Labs CBC & Chem 7: 10/13/17 06:46 10/13/17 06:46 Labs: Abnormal Lab Results - Last 24 Hours (Table) 10/13/17 10/13/17 Range/Units 06:46 06:46 WBC 11.2 H (3.8-10.6) k/uL RBC 3.54 L (3.80-5.40) m/uL Hgb 11.1 L (11.4-16.0) gm/dL Potassium 3.4 L (3.5-5.1) mmol/L Chloride 109 H (98-107) mmol/L Carbon Dioxide 21 L (22-30) mmol/L Glucose 68 L (74-99) mg/dL Calcium 8.2 L (8.4-10.2) mg/dL Amylase 209 H (30-110) U/L Lipase 1465 H (23-300) U/L Assessment and Plan Assessment: Diarrhea and abdominal pain due to Acute C. diff colitis. Diarrhea improved. Acute pancreatitis. Exact etiology unknown. Lipase level trending down.. Gallbladder sludge as per recent workup at [facility] Osteoarthritis Right sciatic nerve pain Lumbar disc degenerative disease with laminectomy on 2016 Current every day smoker. 30 pack years Depression DVT prophylaxis Plan: Patient will be continued on IV hydration and metronidazole 500 mg IV every 8 hourly. Symptomatic management for nausea and vomiting. We will follow up lipase and amylase. Consider GI evaluation if needed. Smoking cessation has been counseled extensively. Continue with the pain management. Further recommendations based on the clinical course Time with Patient: Greater than 30
[2017-10-14] MEDS: MORPHINE SULFATE 2 MG/ML SYRINGE IV PRN ×5 (05:07→23:01)
[2017-10-14] MEDS: metroNIDAZOLE-NS PMX 500 MG in SALINE 1 100ML.BAG IVPB SCH ×3 (06:06→23:01)
[2017-10-14] MEDS: KETOROLAC 30 MG/ML 1 ML VIAL IVP PRN ×3 (06:10→19:59)
[2017-10-14 06:57] LABS: Basophils % (A) 0 %; Eosinophils # (A) 0.3 k/uL (0-0.7); Eosinophils % (A) 3 %; HCT 36.9 % (34.0-46.0); HGB 11.9 gm/dL (11.4-16.0); Lymphocytes % (A) 24 %; MCH 31.7 pg (25.0-35.0); MCHC 32.2 g/dL (31.0-37.0); MCV 98.6 fL (80.0-100.0); Macrocytosis Slight; Mean Platelet Volume 7.4; Monocytes # (A) 0.4 k/uL (0-1.0); Monocytes % (A) 5 %; Neutrophils # (A) 5.3 k/uL (1.3-7.7); Neutrophils % (A) 65 %; Platelet Count 283 k/uL (150-450); RBC 3.75 m/uL (3.80-5.40); RDW 14.6 % (11.5-15.5); WBC 8.1 k/uL (3.8-10.6)
[2017-10-14 07:14] LABS: ALT 35 U/L (9-52); AST 22 U/L (14-36); Albumin 2.9 g/dL (3.5-5.0); Alkaline Phosphatase 48 U/L (38-126); Anion Gap 14 mmol/L; Blood Urea Nitrogen 11 mg/dL (7-17); Calcium 8.2 mg/dL (8.4-10.2); Carbon Dioxide 18 mmol/L (22-30); Chloride 107 mmol/L (98-107); Lipase 743 U/L (23-300); Potassium 3.9 mmol/L (3.5-5.1); Sodium 139 mmol/L (137-145); Total Bilirubin 0.3 mg/dL (0.2-1.3); Total Protein 4.9 g/dL (6.3-8.2)
[2017-10-14 07:27] LABS: Glucose 48 mg/dL (74-99)
[2017-10-14 08:02] LABS: Glucose,Whole Blood 87 mg/dL (75-99)
[2017-10-14] MEDS: NICOTINE 21MG/24HR PATCH TRANSDERM SCH (09:02)
[2017-10-14] MEDS: HEPARIN SODIUM,PORCINE 5,000 UNIT/ML 1 ML VIAL SQ SCH ×3 (09:02→23:01)
[2017-10-14] MEDS: GABAPENTIN 300 MG CAP PO SCH ×3 (09:02→23:01)
[2017-10-14] MEDS: SERTRALINE 100 MG TAB PO SCH (09:02)
[2017-10-14] MEDS: SODIUM CHLORIDE 0.9% 1,000 ML IV SCH ×3 (09:08→18:46)
--- NOTE | 2017-10-14 22:56 | P.PN ---
Subjective Progress Note Date: 10/14/17 Principal diagnosis: Acute pancreatitis and C. diff infection Patient is a 47-year-old female with a known history of osteoarthritis and lumbar disc degenerative disease came to ER with complaints of abdominal pain. Abdominal pain is mainly in the epigastric region. Patient is also having diarrhea last this afternoon and is watery. Patient was a admitted at [facility] from Saturday until Saturday. She states that she had acute pancreatitis and told her that her gallbladder had sludge and may need to be removed. Patient was discharged and then received a phone call stating that she had C. diff. Patient was started on Flagyl and states that she's been taken it but symptoms at work home having worsening. She states she has worsening pain and nausea still having diarrhea at least 10 episodes daily loose watery. Patient does have some subjective fevers. No chills. She denies any alcohol abuse. She does admit to some urinary frequency no dysuria no hematuria no flank pain. She states her pain is in the epigastric region denies chest pain or shortness breath. Patient does not have any prior history of C. diff infection. Denied any recent illnesses or sick contacts. Patient has been stressful recently with her job. Patient had workup done at [facility] including CT abdomen and pelvis ultrasound and x-ray. Patient was seen by Dr. Porter at [facility]. WBC 12.9 Amylase 331 Lipase 2736 10/13/2017 Patient is still complaining of abdominal pain and not tolerating oral diet. Lipase level is trending down otherwise. No diarrhea since yesterday. No fever no chills. Patient is being continued on IV fluids and antibiotics in the form of IV metronidazole. No complaints of chest pain or shortness of breath. No headache or dizziness or lightheadedness. All other review of systems negative except the above Current medications reviewed 10/14/2017 Patient's abdominal pain is slightly improved. Will be started on clear liquid diet. Otherwise patient is still having diarrhea. Patient is on IV metronidazole every 8 hourly. Clinically improved compared to yesterday. No fever no chills. No headache or dizziness or lightheadedness. All other review of systems negative except the above Current medications reviewed Objective - Vital Signs Vital signs: Vital Signs Temp 97.3 F L 10/14/17 11:46 Pulse 95 10/14/17 11:46 Resp 20 10/14/17 11:46 BP 123/75 10/14/17 11:46 Pulse Ox 93 L 10/14/17 11:46 Intake & Output 10/14/17 10/14/17 10/15/17 06:59 18:59 06:59 Output Total 400 Balance -400 Output: Urine 400 Other: # Bowel Movements 2 - Exam PHYSICAL EXAMINATION: Patient is lying in the bed comfortably, no acute distress, awake alert and oriented.. HEENT: Normocephalic. Neck is supple. Pupils reactive. Nostrils clear. Oral cavity is moist. Ears reveal no drainage. Neck reveals no JVD, carotid bruits, or thyromegaly. CHEST EXAMINATION: Trachea is central. Symmetrical expansion. Lung longoria clear to auscultation and percussion. CARDIAC: Normal S1, S2 with no gallops. No murmurs ABDOMEN: Soft. Epigastric tenderness. Bowel sounds normal. No organomegaly. No abdominal bruits. Extremities: reveal no edema. No clubbing or cyanosis Neurologically awake, alert, oriented x3 with well-coordinated movements. No focal deficits noted Skin: No rash or skin lesions. Psychiatric: Coperative. Nonsuicidal Musculoskeletal: No joint swelling or deformity. Normal range of motion. - Labs CBC & Chem 7: 10/14/17 06:48 10/14/17 06:48 Labs: Abnormal Lab Results - Last 24 Hours (Table) 10/14/17 10/14/17 Range/Units 06:48 06:48 RBC 3.75 L (3.80-5.40) m/uL Carbon Dioxide 18 L (22-30) mmol/L Creatinine 0.50 L (0.52-1.04) mg/dL Glucose 48 L* (74-99) mg/dL Calcium 8.2 L (8.4-10.2) mg/dL Total Protein 4.9 L (6.3-8.2) g/dL Albumin 2.9 L (3.5-5.0) g/dL Lipase 743 H (23-300) U/L Assessment and Plan Assessment: Diarrhea and abdominal pain due to Acute C. diff colitis. Diarrhea improved. Acute pancreatitis. Exact etiology unknown. Lipase level trending down.. Gallbladder sludge as per recent workup at [facility] Osteoarthritis Right sciatic nerve pain Lumbar disc degenerative disease with laminectomy on 2016 Current every day smoker. 30 pack years Depression DVT prophylaxis Plan: Patient will be continued on IV hydration and metronidazole 500 mg IV every 8 hourly. Symptomatic management for nausea and vomiting. Amylase and lipase trending down. Leukocytosis normalized. Repeat C. diff toxin test is negative.. Consider GI evaluation if needed. Smoking cessation has been counseled extensively. Continue with the pain management. Further recommendations based on the clinical course Time with Patient: Greater than 30
[2017-10-15] MEDS: KETOROLAC 30 MG/ML 1 ML VIAL IVP PRN ×3 (02:04→20:31)
[2017-10-15] MEDS: MORPHINE SULFATE 2 MG/ML SYRINGE IV PRN ×3 (04:28→18:27)
[2017-10-15] MEDS: metroNIDAZOLE-NS PMX 500 MG in SALINE 1 100ML.BAG IVPB SCH (06:37)
[2017-10-15] MEDS: GABAPENTIN 300 MG CAP PO SCH ×3 (09:45→22:36)
[2017-10-15] MEDS: SERTRALINE 100 MG TAB PO SCH (09:45)
[2017-10-15] MEDS: HEPARIN SODIUM,PORCINE 5,000 UNIT/ML 1 ML VIAL SQ SCH ×2 (09:46→17:14)
[2017-10-15] MEDS: NICOTINE 21MG/24HR PATCH TRANSDERM SCH (09:46)
[2017-10-15] MEDS: VANCOMYCIN ORAL SOLUTION 250 MG/5 ML BOTTLE PO SCH ×2 (13:40→18:24)
[2017-10-15 14:24] VITALS: BMI 21.7
[2017-10-15] MEDS: SODIUM CHLORIDE 0.9% 1,000 ML IV SCH (17:13)
[2017-10-16] MEDS ORDERED: MORPHINE SULFATE 2 MG/ML SYRINGE ONE (00:15)
[2017-10-16] MEDS ORDERED: HEPARIN SODIUM,PORCINE 5,000 UNIT/ML 1 ML VIAL ONE (00:15)
[2017-10-16] MEDS ORDERED: KETOROLAC 30 MG/ML 1 ML VIAL ONE (00:15)
[2017-10-16] MEDS: VANCOMYCIN ORAL SOLUTION 250 MG/5 ML BOTTLE PO SCH ×4 (06:23→17:50)
[2017-10-16] MEDS: MORPHINE SULFATE 2 MG/ML SYRINGE IV PRN ×3 (06:32→20:16)
[2017-10-16] MEDS: HEPARIN SODIUM,PORCINE 5,000 UNIT/ML 1 ML VIAL SQ SCH ×3 (06:39→15:38)
[2017-10-16] MEDS: GABAPENTIN 300 MG CAP PO SCH ×3 (08:50→21:59)
[2017-10-16] MEDS: NICOTINE 21MG/24HR PATCH TRANSDERM SCH (08:50)
[2017-10-16] MEDS: KETOROLAC 30 MG/ML 1 ML VIAL IVP PRN ×3 (09:17→22:00)
[2017-10-16] MEDS: SERTRALINE 100 MG TAB PO SCH (09:20)
[2017-10-16] MEDS: SODIUM CHLORIDE 0.9% 1,000 ML IV SCH ×3 (12:38→20:17)
[2017-10-16] MEDS: CHOLESTYRAMINE (WITH SUGAR) 4 GM PACKET PO SCH (17:22)
[2017-10-16 21:03] VITALS: RESP 18
--- NOTE | 2017-10-16 22:27 | P.PN ---
Subjective Progress Note Date: 10/15/17 Principal diagnosis: Acute pancreatitis and C. diff infection Patient is a 47-year-old female with a known history of osteoarthritis and lumbar disc degenerative disease came to ER with complaints of abdominal pain. Abdominal pain is mainly in the epigastric region. Patient is also having diarrhea last this afternoon and is watery. Patient was a admitted at [facility] from Saturday until Saturday. She states that she had acute pancreatitis and told her that her gallbladder had sludge and may need to be removed. Patient was discharged and then received a phone call stating that she had C. diff. Patient was started on Flagyl and states that she's been taken it but symptoms at work home having worsening. She states she has worsening pain and nausea still having diarrhea at least 10 episodes daily loose watery. Patient does have some subjective fevers. No chills. She denies any alcohol abuse. She does admit to some urinary frequency no dysuria no hematuria no flank pain. She states her pain is in the epigastric region denies chest pain or shortness breath. Patient does not have any prior history of C. diff infection. Denied any recent illnesses or sick contacts. Patient has been stressful recently with her job. Patient had workup done at [facility] including CT abdomen and pelvis ultrasound and x-ray. Patient was seen by Dr. Porter at [facility]. WBC 12.9 Amylase 331 Lipase 2736 10/13/2017 Patient is still complaining of abdominal pain and not tolerating oral diet. Lipase level is trending down otherwise. No diarrhea since yesterday. No fever no chills. Patient is being continued on IV fluids and antibiotics in the form of IV metronidazole. No complaints of chest pain or shortness of breath. No headache or dizziness or lightheadedness. All other review of systems negative except the above Current medications reviewed 10/14/2017 Patient's abdominal pain is slightly improved. Will be started on clear liquid diet. Otherwise patient is still having diarrhea. Patient is on IV metronidazole every 8 hourly. Clinically improved compared to yesterday. No fever no chills. No headache or dizziness or lightheadedness. 10/15/2017 Abdominal pain is much improved now patient is tolerating liquid diet. Otherwise patient still having watery diarrhea. Antibiotics will be changed to vancomycin by mouth. Patient is being continued on IV hydration and advance diet as tolerated. Denied any chest pain or shortness of breath. No fever no chills. All other review of systems negative except the above Current medications reviewed Objective - Vital Signs Vital signs: Vital Signs Temp 97.9 F 10/15/17 15:00 Pulse 80 10/15/17 15:00 Resp 18 10/15/17 15:00 BP 122/70 10/15/17 15:00 Pulse Ox 97 10/15/17 08:00 Intake & Output 10/15/17 10/15/17 10/16/17 06:59 18:59 06:59 Intake Total 360 Balance 360 Weight 54 kg Intake: Oral 360 Other: # Voids 1 1 # Bowel Movements 1 1 - Exam PHYSICAL EXAMINATION: Patient is lying in the bed comfortably, no acute distress, awake alert and oriented.. HEENT: Normocephalic. Neck is supple. Pupils reactive. Nostrils clear. Oral cavity is moist. Ears reveal no drainage. Neck reveals no JVD, carotid bruits, or thyromegaly. CHEST EXAMINATION: Trachea is central. Symmetrical expansion. Lung longoria clear to auscultation and percussion. CARDIAC: Normal S1, S2 with no gallops. No murmurs ABDOMEN: Soft. Epigastric tenderness. Bowel sounds normal. No organomegaly. No abdominal bruits. Extremities: reveal no edema. No clubbing or cyanosis Neurologically awake, alert, oriented x3 with well-coordinated movements. No focal deficits noted Skin: No rash or skin lesions. Psychiatric: Coperative. Nonsuicidal Musculoskeletal: No joint swelling or deformity. Normal range of motion. - Labs CBC & Chem 7: 10/14/17 06:48 10/14/17 06:48 Assessment and Plan Assessment: Diarrhea and abdominal pain due to Acute C. diff colitis. Diarrhea improved. Acute pancreatitis. Exact etiology unknown. Lipase level trending down.. Gallbladder sludge as per recent workup at [facility] Osteoarthritis Right sciatic nerve pain Lumbar disc degenerative disease with laminectomy on 2016 Current every day smoker. 30 pack years Depression DVT prophylaxis Plan: Patient was continued on IV hydration and metronidazole 500 mg IV every 8 hourly. Antibiotics changed to vancomycin oral. Symptomatic management for nausea and vomiting. Amylase and lipase trending down. Leukocytosis normalized. Repeat C. diff toxin test is negative.. Consider GI evaluation if needed. Smoking cessation has been counseled extensively. Continue with the pain management. Further recommendations based on the clinical course Time with Patient: Greater than 30
[2017-10-17] MEDS: HEPARIN SODIUM,PORCINE 5,000 UNIT/ML 1 ML VIAL SQ SCH ×2 (00:23→09:10)
[2017-10-17] MEDS: VANCOMYCIN ORAL SOLUTION 250 MG/5 ML BOTTLE PO SCH ×3 (00:23→11:40)
[2017-10-17] MEDS: MORPHINE SULFATE 2 MG/ML SYRINGE IV PRN ×2 (00:23→06:41)
[2017-10-17] MEDS: KETOROLAC 30 MG/ML 1 ML VIAL IVP PRN ×2 (04:46→10:00)
[2017-10-17] MEDS: SODIUM CHLORIDE 0.9% 1,000 ML IV SCH (04:46)
[2017-10-17 07:04] LABS: ALT 48 U/L (9-52); AST 46 U/L (14-36); Alkaline Phosphatase 40 U/L (38-126); Anion Gap 9 mmol/L; Blood Urea Nitrogen 3 mg/dL (7-17); Calcium 9.1 mg/dL (8.4-10.2); Carbon Dioxide 27 mmol/L (22-30); Chloride 107 mmol/L (98-107); Glucose 88 mg/dL (74-99); Potassium 3.7 mmol/L (3.5-5.1); Sodium 143 mmol/L (137-145); Total Bilirubin 0.1 mg/dL (0.2-1.3); Total Protein 4.9 g/dL (6.3-8.2)
[2017-10-17 07:14] LABS: Basophils % (A) 1 %; Eosinophils # (A) 0.4 k/uL (0-0.7); Eosinophils % (A) 5 %; HGB 12.5 gm/dL (11.4-16.0); Lymphocytes # (A) 2.6 k/uL (1.0-4.8); Lymphocytes % (A) 31 %; MCH 31.5 pg (25.0-35.0); MCHC 31.3 g/dL (31.0-37.0); MCV 100.5 fL (80.0-100.0); Macrocytosis Slight; Mean Platelet Volume 7.2; Monocytes # (A) 0.6 k/uL (0-1.0); Monocytes % (A) 8 %; Neutrophils # (A) 4.5 k/uL (1.3-7.7); Neutrophils % (A) 54 %; Platelet Count 318 k/uL (150-450); RBC 3.98 m/uL (3.80-5.40); RDW 15.3 % (11.5-15.5); WBC 8.3 k/uL (3.8-10.6)
[2017-10-17 08:32] VITALS: BP 122/77; PULSE 71; TEMP 98.2
[2017-10-17] MEDS: NICOTINE 21MG/24HR PATCH TRANSDERM SCH (09:10)
[2017-10-17] MEDS: SERTRALINE 100 MG TAB PO SCH (09:10)
[2017-10-17] MEDS: CHOLESTYRAMINE (WITH SUGAR) 4 GM PACKET PO SCH (09:10)
[2017-10-17] MEDS: GABAPENTIN 300 MG CAP PO SCH (09:10)
--- NOTE | 2017-10-17 11:01 | P.PN ---
Subjective Progress Note Date: 10/16/17 Principal diagnosis: Acute pancreatitis and C. diff infection Patient is a 47-year-old female with a known history of osteoarthritis and lumbar disc degenerative disease came to ER with complaints of abdominal pain. Abdominal pain is mainly in the epigastric region. Patient is also having diarrhea last this afternoon and is watery. Patient was a admitted at [facility] from Saturday until Saturday. She states that she had acute pancreatitis and told her that her gallbladder had sludge and may need to be removed. Patient was discharged and then received a phone call stating that she had C. diff. Patient was started on Flagyl and states that she's been taken it but symptoms at work home having worsening. She states she has worsening pain and nausea still having diarrhea at least 10 episodes daily loose watery. Patient does have some subjective fevers. No chills. She denies any alcohol abuse. She does admit to some urinary frequency no dysuria no hematuria no flank pain. She states her pain is in the epigastric region denies chest pain or shortness breath. Patient does not have any prior history of C. diff infection. Denied any recent illnesses or sick contacts. Patient has been stressful recently with her job. Patient had workup done at [facility] including CT abdomen and pelvis ultrasound and x-ray. Patient was seen by Dr. Porter at [facility]. WBC 12.9 Amylase 331 Lipase 2736 10/13/2017 Patient is still complaining of abdominal pain and not tolerating oral diet. Lipase level is trending down otherwise. No diarrhea since yesterday. No fever no chills. Patient is being continued on IV fluids and antibiotics in the form of IV metronidazole. No complaints of chest pain or shortness of breath. No headache or dizziness or lightheadedness. All other review of systems negative except the above Current medications reviewed 10/14/2017 Patient's abdominal pain is slightly improved. Will be started on clear liquid diet. Otherwise patient is still having diarrhea. Patient is on IV metronidazole every 8 hourly. Clinically improved compared to yesterday. No fever no chills. No headache or dizziness or lightheadedness. 10/15/2017 Abdominal pain is much improved now patient is tolerating liquid diet. Otherwise patient still having watery diarrhea. Antibiotics will be changed to vancomycin by mouth. Patient is being continued on IV hydration and advance diet as tolerated. Denied any chest pain or shortness of breath. No fever no chills. 10/16/2017 Abdominal pain is much improved and almost resolved. Still having watery diarrhea today patient will be continued on vancomycin orally along with cholestyramine will be added. We will recheck labs tomorrow and anticipate discharge in next 24 hours with improvement in diarrhea. Otherwise no fever no chills. No complaints of chest pain or shortness of breath. . All other review of systems negative except the above Current medications reviewed Objective - Vital Signs Vital signs: Vital Signs Temp 98.4 F 10/16/17 19:00 Pulse 80 10/16/17 19:00 Resp 18 10/16/17 19:00 BP 121/71 10/16/17 19:00 Pulse Ox 95 10/16/17 19:00 Intake & Output 10/16/17 10/16/17 10/17/17 06:59 18:59 06:59 Intake Total 589 958 4426 Balance 496 080 3465 Intake: Oral 105 517 4299 Other: Voiding Method Toilet # Voids 1 1 # Bowel Movements 2 1 - Exam PHYSICAL EXAMINATION: Patient is lying in the bed comfortably, no acute distress, awake alert and oriented.. HEENT: Normocephalic. Neck is supple. Pupils reactive. Nostrils clear. Oral cavity is moist. Ears reveal no drainage. Neck reveals no JVD, carotid bruits, or thyromegaly. CHEST EXAMINATION: Trachea is central. Symmetrical expansion. Lung longoria clear to auscultation and percussion. CARDIAC: Normal S1, S2 with no gallops. No murmurs ABDOMEN: Soft. Epigastric tenderness. Bowel sounds normal. No organomegaly. No abdominal bruits. Extremities: reveal no edema. No clubbing or cyanosis Neurologically awake, alert, oriented x3 with well-coordinated movements. No focal deficits noted Skin: No rash or skin lesions. Psychiatric: Coperative. Nonsuicidal Musculoskeletal: No joint swelling or deformity. Normal range of motion. - Labs CBC & Chem 7: 10/17/17 06:30 10/17/17 06:30 Assessment and Plan Assessment: Diarrhea and abdominal pain due to Acute C. diff colitis. Diarrhea improved. Acute pancreatitis. Exact etiology unknown. Lipase level trending down.. Gallbladder sludge as per recent workup at [facility] Osteoarthritis Right sciatic nerve pain Lumbar disc degenerative disease with laminectomy on 2016 Current every day smoker. 30 pack years Depression DVT prophylaxis Plan: Patient was continued on IV hydration and metronidazole 500 mg IV every 8 hourly. Antibiotics changed to vancomycin oral. Symptomatic management for nausea and vomiting. Amylase and lipase trending down. Leukocytosis normalized. Repeat C. diff toxin test is negative.. Consider GI evaluation if needed. Smoking cessation has been counseled extensively. Continue with the pain management. Further recommendations based on the clinical course Time with Patient: Greater than 30
== END 2017-10-17 13:01 | disposition home or self-care (01) | DRG 371 ==
LOC: EC 15:01 → 6PED 17:59
PROVIDERS: ADMIT Internal Medicine; ATTEND Internal Medicine
DX: A04.72 Enterocolitis due to Clostridium difficile, not specified as recurrent (principal); K85.90 Acute pancreatitis without necrosis or infection, unspecified; F32.9 Major depressive disorder, single episode, unspecified; M17.0 Bilateral primary osteoarthritis of knee; M54.31 Sciatica, right side; R35.0 Frequency of micturition; F17.210 Nicotine dependence, cigarettes, uncomplicated; K82.8 Other specified diseases of gallbladder; Z79.899 Other long term (current) drug therapy; Z79.3 Long term (current) use of hormonal contraceptives; Z71.6 Tobacco abuse counseling; Z82.49 Family history of ischemic heart disease and other diseases of the circulatory system; Z82.69 Family history of other diseases of the musculoskeletal system and connective tissue
CPT/HCPCS: 36415; 80048; 80053; 81003; 81025; 82150; 83690; 85025; 87324; 96361; 96374; 96375; 99285

== ENCOUNTER → 2018-05-21 | Outpatient (CLI) | payer OTHER ==
[2018-05-21 13:11] VITALS: BP 148/87; PULSE 86; RESP 16
--- NOTE | 2018-05-21 13:54 | P.PAINPG ---
Subjective Progress Note Date: 05/21/18 This is a follow-up visit for this 48 years old female, with a chronic history of severe low back pain patient diagnosed with postlaminectomy pain syndrome lumbar area, patient seen [facility] pain [facility] last year, we have done: caudal Epidural steroid injection with lysis of epidural adhesionsx3 , patient had more than 50% improvement in her pain, and over the last few months she started feeling severe low back pain, mainly on the right side, and radiated to the posterior aspect of her right lower extremity, occasional numbness and tingling sensation, she denies any fever or night sweats she denies any motor or sensory deficits, 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 -HEENT : nech ; supple , no Lymphadenopathy , normal thyroid size . eyes : no ptosis , no icterus, no photophobia . ENT : normal of hearing , normal oropharynx , no Thrush . - Respiratory : Chest clear to auscultations Bilaterally , no wheezing , no Rhonchi . - Cardiovascula : regular rate and rhythem , S1 , S2 , no S3 , no S4. - Gastrointestina : abdomen soft no tenderness , bowel sounds , no organomegally . - Genitourinary : Defferred . - neurologic : Cranial nerve II to XII intact , no focal neurological deffecit . -psychatric : alert , oriented X 3 , appropriate affect , intact judgment and insight . -Lymphatic : no Lymphadenopathy . - musculoskeltal : Lumber spine moter stegnth lower extremities ,thigh and legs 5/5 Right side , 5/5 Left side deep tendon reflexes : normal Knee Jerk , normal ankle Jerk positive lumber facet Loading Test on the right side, and negative on the left side Range of motion of the lumbar spine Flexion 60 degrees, extension 30 degrees strait leg raising test , positive at 45 degree on the right side ,and its negative on the left side Fabere test positive RT and negative LT . no tenderness over the Sacroiliac joint on the R and L sides MRI of the lumbar spine done at [facility], L3 4 facet arthropathy at L4 5 bulging disc and L5-S1 laminectomy Assessment and Plan Plan: Assessment and plan=1-postlaminectomy pain syndrome lumbar area. 2-lumbar spondylosis with lumbar facet arthropathy without myelopathy. Patient will be good candidate Caudal epidural steroid injection with lysis of epidural adhesions.X2 If she continue to have pain after the caudal epidural steroid injections ,the we will do diagnostic medial branch block lumbar area She should continue her current medication Neurontin 300 mg 3 times a day, and Zanaflex Q8 hours. She is getting prescriptions from PCP Time with Patient: Less than 30 PQRS Measure Charge Sheet Measure #130: Documentation of Current Meds in Medical Chart: Patient's medications documented in chart Measure #226: Tobacco Use: Screen & Cessation Intervention: Pt screened for tobacco use AND intervention given Measure #111: Pneumonia Vaccination: Pneumococcal vaccine NOT administered or previously given Measure #47: Advance Care Plan: Advance care planning discussed & documented, pt chose/unable to give Measure #412: Opioid Treatment Agreement: No documentation of signed opioid treatment agreement Measure #408: Opioid Therapy Follow-up Evaluation: Patient had NO f/u eval minimum every 3 months during opioid therapy Measure #317: Preventitive Care & Scrn High Bld Press & F/U: Pre-hypertensive or hypertensive BP documented, pt will f/u with PCP Measure #128: Body Mass Index (BMI) Screening & Follow-up: BMI documented within normal parameters Measure #131: Pain Assessment & Follow-up: Pain positive & plan documented, Follow-up scheduled Measure #431: Unhealthy Alcohol Use Preventative Care & Scrn: Patient not identified as an unhealthy alcohol user PQRS Narrative: Smoking Status Current every day smoker Do You Want the Pneumonia No Vaccine AT THIS TIME? Blood Pressure 148/87 Pain Intensity [Right Lower 7 Back] Scale Used Numeric (1 - 10) Hx Alcohol Use (MH) No Home Medications: Ambulatory Orders Gabapentin [Neurontin] 300 mg PO TID 12/19/16 Ibuprofen 200 mg PO Q4-6H PRN 12/19/16 Medroxyprogesterone Acetate [Depo-Provera] 150 mg IM Q84D 12/19/16 tiZANidine HCL 4 mg PO Q8H PRN 12/19/16 Acetaminophen Tab [Tylenol] 1,000 mg PO Q6HR PRN 12/24/16 Sertraline [Zoloft] 100 mg PO DAILY 10/12/17 Controlled Substance Measures - Controlled Substance Measures Is patient prescribed a controlled substance at discharge?: No When asked, does pt state using other controlled substances?: No If prescribed controlled substance>3 days was MAPS reviewed?: No If Rx opioid, was Start Talking consent form obtained?: No If opioid is for acute pain is fill amount 7 days or less?: No Was information provided regarding opioid addiction?: No
== END ==
LOC: PNWHC3 12:56
PROVIDERS: ATTEND Specialist
DX: G89.29 Other chronic pain (principal); M47.816 Spondylosis without myelopathy or radiculopathy, lumbar region; M46.96 Unspecified inflammatory spondylopathy, lumbar region; M96.1 Postlaminectomy syndrome, not elsewhere classified; Z79.891 Long term (current) use of opiate analgesic; Z79.899 Other long term (current) drug therapy; Z87.891 Personal history of nicotine dependence; Z79.1 Long term (current) use of non-steroidal anti-inflammatories (NSAID)
CPT/HCPCS: 99211

== ENCOUNTER 2018-06-05 06:44 | Day surgery (SDC) | payer OTHER ==
[2018-06-03 09:55] VITALS: BMI 23.3
[~2018-06-05 06:44] MED LIST changes: -LACTATED RINGERS 1,000 ML IV SCH; +SODIUM CHLORIDE 0.9% 500 ML 500 ML IV SCH
[2018-06-05 07:27] VITALS: TEMP 98.2
[2018-06-05] MEDS ORDERED: LACTATED RINGERS 1,000 ML IV ONE (07:39)
[2018-06-05] MEDS ORDERED: LIDOCAINE 1% 20 ML VIAL (10MG/ML) FOR IV START INTRADERMA ONE (07:39)
--- NOTE | 2018-06-05 08:27 | P.PCN ---
Date of Procedure: 06/05/18 Surgeon: Vladimir Aviles Pathology: none sent Condition: stable Disposition: PACU Description of Procedure: PREOP DIAGNOSIS: Lumbar postlaminectomy syndrome POSTOP DIAGNOSIS: Lumbar postlaminectomy syndrome PROCEDURE: Caudal epidural steroid injection with epidurolysis and epidurogram under fluoroscopic guidance SURGEON:Vladimir Aviles ANESTHESIA: Local with 1% lidocaine; IV moderate conscious sedation EBL: Minimal. PROCEDURE INDICATION: The patient with post-laminectomy syndrome with low back pain and radiculopathy radiating down in both legs, here for a caudal epidural steroid injection with epidurolysis. PROCEDURE DESCRIPTION: The patient was seen and identified in the preoperative area. Risks, benefits, complications, and alternatives were discussed with the patient. The patient agreed to proceed with the procedure and signed the consent. IV was started, and vital signs were stable. Patient was taken to the OR and time out was completed. The patient was placed in the prone position on procedure table and a pillow was placed under the abdomen to reduce lumbar lordosis. The lumbosacral area was prepped and draped in the usual sterile fashion. Critical pause was taken. Vital signs were closely monitored during the procedure. Fluoroscopic camera was placed in the lateral view and the anterior-posterior plates of the sacrum were identified with infiltration of the area overlying the sacral hiatus with 1% lidocaine .A 16 gauge RK epidural needle was used to advance through the sacral hiatus into the caudal epidural space. Omnipaque 300 dye 2cc was injected and the position of the needle was verified to be in the midline. A Racz catheter was introduced into the epidural space and was advanced towards the L5-S1 interspace under direct fluoroscopic guidance. Multiple passes were made with the catheter for lysis of epidural adhesions. Kenalog 80mg with 2ml of preservative free Ropivacaine 0.5% and 7 ml of preservative free normal saline was injected slowly. The needle and the catheter were withdrawn intact. EPIDUROGRAM: Omnipaque 300 dye 2 ml was injected with spread of the dye into the caudal epidural space and with spread cutoff at S1 prior to epidurolysis. Post epidurolysis dye 2 ml was injected and spread was seen to L4.There was further spread of the solution together with the dye above the L4. COMPLICATIONS: None. DISPOSITION / PLANS: The patient was placed in a supine position and transferred to the recovery area in a stable condition for observation and was discharged from the recovery room after meeting discharge criteria. Home discharge instructions given to the patient by the staff. The patient was reexamined prior to discharge.
[2018-06-05] MEDS ORDERED: IV FLUID CONTINUATION 800 ML IV ONE (08:31)
[2018-06-05 08:54] VITALS: RESP 18
[2018-06-05 08:58] VITALS: BP 152/70; PULSE 82
--- NOTE | 2018-06-05 11:44 | FL ---
Fluoroscopy HISTORY: Pain 35 seconds fluoroscopy time supplied to the referring clinician. 4 intraoperative C-arm images docum ent the procedure. See dictated report from anesthesia.
== END 2018-06-05 08:58 | disposition home or self-care (01) ==
LOC: ORPAIN 06:44
PROVIDERS: ATTEND Anesthesiology
DX: G89.29 Other chronic pain (principal); M96.1 Postlaminectomy syndrome, not elsewhere classified; G96.12 Meningeal adhesions (cerebral) (spinal); F17.200 Nicotine dependence, unspecified, uncomplicated; Z79.899 Other long term (current) drug therapy
CPT/HCPCS: 81025; 62264; J2250; J3301; J3010; Q9966; C1894; 62323; 99152

== ENCOUNTER 2018-06-19 07:18 | Day surgery (SDC) | payer OTHER ==
[2018-06-13 13:49] VITALS: BMI 22.8
[2018-06-19 07:47] VITALS: TEMP 98.6
[2018-06-19] MEDS ORDERED: LACTATED RINGERS 1,000 ML IV ONE (07:56)
[2018-06-19] MEDS ORDERED: LIDOCAINE 1% 20 ML VIAL (10MG/ML) FOR IV START SQ ONE (07:56)
--- NOTE | 2018-06-19 08:51 | P.PCN ---
Description of Procedure: PREOP DIAGNOSIS: Lumbar postlaminectomy syndrome POSTOP DIAGNOSIS: Lumbar postlaminectomy syndrome PROCEDURE: Caudal epidural steroid injection with epidurolysis and epidurogram under fluoroscopic guidance SURGEON: Vladimir Aviles MD ANESTHESIA: Local with 1% lidocaine; IV moderate conscious sedation EBL: Minimal. PROCEDURE INDICATION: The patient with post-laminectomy syndrome with low back pain and radiculopathy radiating down in both legs, here for a caudal epidural steroid injection with epidurolysis. PROCEDURE DESCRIPTION: The patient was seen and identified in the preoperative area. Risks, benefits, complications, and alternatives were discussed with the patient. The patient agreed to proceed with the procedure and signed the consent. IV was started, and vital signs were stable. Patient was taken to the OR and time out was completed. The patient was placed in the prone position on procedure table and a pillow was placed under the abdomen to reduce lumbar lordosis. The lumbosacral area was prepped and draped in the usual sterile fashion. Critical pause was taken. Vital signs were closely monitored during the procedure. Fluoroscopic camera was placed in the lateral view and the anterior-posterior plates of the sacrum were identified with infiltration of the area overlying the sacral hiatus with 1% lidocaine .A 16 gauge RK epidural needle was used to advance through the sacral hiatus into the caudal epidural space. Omnipaque 300 dye 2cc was injected and the position of the needle was verified to be in the midline. A Racz catheter was introduced into the epidural space and was advanced towards the L5-S1 interspace under direct fluoroscopic guidance. Multiple passes were made with the catheter for lysis of epidural adhesions. Kenalog 40mg with 2ml of preservative free Ropivacaine 0.5% and 7 ml of preservative free normal saline was injected slowly. The needle and the catheter were withdrawn intact. EPIDUROGRAM: Omnipaque 300 dye 2 ml was injected with spread of the dye into the caudal epidural space and with spread cutoff at S1 prior to epidurolysis. Post epidurolysis dye 2 ml was injected and spread was seen to L4.There was further spread of the solution together with the dye above the L4. COMPLICATIONS: None. DISPOSITION / PLANS: The patient was placed in a supine position and transferred to the recovery area in a stable condition for observation and was discharged from the recovery room after meeting discharge criteria. Home discharge instructions given to the patient by the staff. The patient was reexamined prior to discharge.
[2018-06-19] MEDS ORDERED: IV FLUID CONTINUATION 1,000 ML IV ONE (08:55)
--- NOTE | 2018-06-19 09:08 | FL ---
EXAMINATION TYPE: FL guided pain mgmt statistic DATE OF EXAM: 06/19/2018 FLUOROSCOPY Fluoroscopy time of 10 seconds was used during caudal epidural injection. 2 image/s document/s the p rocedure.
[2018-06-19 09:25] VITALS: BP 136/81; PULSE 78; RESP 18
== END 2018-06-19 09:20 | disposition home or self-care (01) ==
LOC: ORPAIN 07:18
PROVIDERS: ATTEND Anesthesiology
DX: M96.1 Postlaminectomy syndrome, not elsewhere classified (principal); M54.10 Radiculopathy, site unspecified
CPT/HCPCS: 81025; 62264; J2250; J3301; J3010; Q9966; C1894; 62323; 99152

== ENCOUNTER → 2018-07-07 | Outpatient (CLI) | payer OTHER ==
[2018-07-07 12:33] VITALS: BP 147/88; PULSE 92; RESP 16
--- NOTE | 2018-07-07 13:31 | P.PAINPG ---
Subjective Progress Note Date: 07/07/18 Jina is a 48-year-old female presents today for follow-up regarding her right leg and low back pain. 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 She reports that she is follow-up with her surgeon and he wanted her to have injections. She is status post 2 caudal epidural injections which offered her very short-term relief of her pain. She continues to work but has pain in the right leg at times especially when the cold weather is present. She reports that she has pain but no real weakness in the leg. She also has numbness and tingling in the leg. She does not use any pain medication s at this time does not like taking pain medications. She reports that the surgeon is requested that the next step would be a lumbar fusion but she is not interested in having that done. She denies any bowel or bladder incontinence. Objective - Vital Signs Vital signs: Vital Signs Temp Pulse 92 07/07/18 12:24 Resp 16 07/07/18 12:24 BP 147/88 07/07/18 12:24 Pulse Ox Intake & Output 07/06/18 07/07/18 07/07/18 18:59 06:59 18:59 Weight 56.699 kg - Exam General: Awake and alert oriented 3 no distress Respiratory exam: No audible wheezing no accessory muscle usage Cardiovascular exam: regular rate, palpable bilateral pulses, no lower extremity edema Abdominal exam: No distention nontender to palpation Cervical spine: Normal alignment, Spurling's negative, facet loading negative Lumbar spine: Loss of lumbar lordosis, normal alignment, tender to palpation over bilateral paraspinal muscles, facet loading is negative bilaterally. Straight leg raise is positive on the right Sacroiliac joints: Nontender to palpation, LEXII is negative, Gaenselon negative Neuro exam: Normal sensation in bilateral upper extremities, deep tendon reflexes are 2+ bilateral upper extremities. Normal sensation in bilateral lower extremities. Deep tendon reflexes are 2+ in lower extremities except for right Achilles reflex which is absent Psych exam: Cooperative, appropriate mood Assessment and Plan Assessment: #1 lumbar radiculopathy #2 lumbar postlaminectomy syndrome Plan: At this point discussed with the patient that we may or may not be able to significantly improve her pain overall. I reviewed her MRI from 2 years ago which showed significant amount of scar tissue encasing the S1 nerve root as it exits the foramen. Discussed with her that we may potentially try a transforaminal epidural the right side at the L5-S1 level and see if that improves her pain. I also did discuss other potential spinal cord stimulation. I also offered her a referral to see another surgeon if she is not comfortable with the recommendations of her surgeon for potential invasive decompression and nerve root release. She wants to try the transfemoral epidural first and then move forward from there. I do believe she may require new MRI at some point if she does not get significantly better to evaluate the area and offer her correct referral PQRS Measure Charge Sheet Measure #130: Documentation of Current Meds in Medical Chart: Patient's medications documented in chart Measure #226: Tobacco Use: Screen & Cessation Intervention: Pt not a tobacco user Measure #111: Pneumonia Vaccination: Pneumococcal vaccine administered or previously received Measure #47: Advance Care Plan: Advance care planning discussed & documented, plan or surrogate given Measure #412: Opioid Treatment Agreement: No documentation of signed opioid treatment agreement Measure #317: Preventitive Care & Scrn High Bld Press & F/U: Normal blood pressure, f/u not required Measure #128: Body Mass Index (BMI) Screening & Follow-up: BMI documented within normal parameters Measure #131: Pain Assessment & Follow-up: Pain positive & plan documented PQRS Narrative: Smoking Status Current every day smoker Do You Want the Pneumonia No Vaccine AT THIS TIME? Blood Pressure 147/88 Pain Intensity [Right 3 Posterior Back] Scale Used Numeric (1 - 10) Hx Alcohol Use (MH) No Home Medications: Ambulatory Orders Ibuprofen 200 mg PO Q4-6H PRN 12/19/16 Medroxyprogesterone Acetate [Depo-Provera] 150 mg IM Q84D 12/19/16 tiZANidine HCL 4 mg PO Q8H PRN 12/19/16 Acetaminophen Tab [Tylenol] 1,000 mg PO Q6HR PRN 12/24/16 Sertraline [Zoloft] 100 mg PO DAILY 10/12/17 Controlled Substance Measures - Controlled Substance Measures Is patient prescribed a controlled substance at discharge?: No
== END ==
LOC: PNWHC3 12:16
PROVIDERS: ATTEND Hospitalist
DX: M96.1 Postlaminectomy syndrome, not elsewhere classified (principal); M54.16 Radiculopathy, lumbar region; F17.200 Nicotine dependence, unspecified, uncomplicated; Z79.899 Other long term (current) drug therapy; Z79.1 Long term (current) use of non-steroidal anti-inflammatories (NSAID)
CPT/HCPCS: 99211

== ENCOUNTER 2018-07-21 07:15 | Day surgery (SDC) | payer OTHER ==
[2018-07-16 14:50] VITALS: BMI 23.6
[2018-07-21 07:38] VITALS: RESP 16; TEMP 98.2
--- NOTE | 2018-07-21 07:46 | P.PCN ---
Date of Procedure: 07/21/18 Description of Procedure: PREOPERATIVE DIAGNOSIS: Lumbar radiculopathy POSTOPERATIVE DIAGNOSIS: Lumbar radiculopathy PROCEDURE 1. Transforaminal epidural steroid injection under fluoroscopic guidance RIGHT L5-S1 2. Lumbar epidurogram ANESTHESIA: Local with 1% lidocaine 5 ml PROCEDURE DESCRIPTION / TECHNIQUE: The patient was seen and identified in the preoperative area. Risks, benefits, complications, and alternatives were discussed with the patient. The patient agreed to proceed with the procedure and signed the consent, vital signs were stable prior to the procedure. Patient was taken to the OR and time out was completed. The patient was placed in the prone position on procedure table and a pillow was placed under the abdomen to reduce lumbar lordosis. The lumbosacral area was prepped and draped in the usual sterile fashion. Vital signs were closely monitored during the procedure. Conscious sedation was used. Using oblique fluoroscopy, the chin of the "Paul dog" at the pedicle and the skin and deeper tissues just below was localized with 1% lidocaine. Subsequently, a 22-gauge 3.5-inch spinal needle was advanced under a tunneled view fluoroscopic guidance just underneath the chin of the "Paul dog". Under lateral fluoroscopy, the needle was then advanced to the posterior border interforaminal space. After negative aspiration of CSF and blood and with no paresthesias, 1 mL of Omnipaque-240 contrast dye was injected excellent epidurogram. Subsequently, 10mg/ml dexamethasone in 2ml of PFNS was injected after negative aspiration(total of 10mg of dexamethasone was used). Needle was removed. COMPLICATIONS: None DISPOSITION / PLANS: The patient was placed in a supine position and transferred to the recovery area in a stable condition for observation. There was no evidence of lower extremity motor or sensory deficit after the procedure. Patient was discharged from the recovery room after meeting discharge criteria. Home discharge instructions were given to the patient by the staff. The patient was reexamined prior to discharge. Follow up as directed.
--- NOTE | 2018-07-21 08:38 | FL ---
EXAMINATION TYPE: FL guided pain mgmt statistic DATE OF EXAM: 07/21/2018 CLINICAL HISTORY: Low back pain. TECHNIQUE: Fluoroscopy. COMPARISON: None. FINDINGS: Fluoroscopic guidance was provided during pain relief procedure performed by Dr. Garnett . A total of 4 seconds of fluoroscopic time was utilized during the procedure and single spot fluoros copic image is acquired. Single image acquired shows needle localization at L5 level with contrast i njection. IMPRESSION: As Above.
[2018-07-21 08:47] VITALS: BP 120/78; PULSE 82
== END 2018-07-21 08:40 | disposition home or self-care (01) ==
LOC: ORPAIN 07:15
PROVIDERS: ATTEND Hospitalist
DX: M54.16 Radiculopathy, lumbar region (principal)
CPT/HCPCS: 81025; 64483; J1100; Q9966

== ENCOUNTER → 2018-08-04 | Day surgery (SDC) | payer OTHER ==
[2018-07-29 18:09] VITALS: BMI 23.8
[2018-08-04 08:36] VITALS: TEMP 98.5
--- NOTE | 2018-08-04 09:17 | P.PCN ---
Date of Procedure: 08/04/18 Surgeon: Vladimir Aviles Pathology: none sent Condition: stable Disposition: PACU Description of Procedure: Preoperative Diagnosis: Right lumbar radiculopathy Postoperative Diagnosis: Same as above Procedure(s) Performed: Transforaminal epidural steroid injection for level L5-S1 on Rt. side under fluoroscopic guidance Anesthesia: MAC (IV conscious sedation with 2 mg of Versed) Surgeon: Vladimir Aviles Condition: stable Disposition: PACU Description of Procedure: . The patient was seen and identified in the preoperative area. Risks, benefits, complications, and alternatives were discussed with the patient. The patient agreed to proceed with the procedure and signed the consent. IV was started, and vital signs were stable. Patient was taken to the OR and time out was completed. The patient was placed in the prone position on procedure table and a pillow was placed under the abdomen to reduce lumbar lordosis. The lumbosacral area was prepped and draped in the usual sterile fashion. Critical pause was taken. Vital signs were closely monitored during the procedure. Conscious sedation was used during the procedure to decrease patients anxiety. Lidocaine 1% was used to numb the skin up at the target points that were chosen as follows: For the L5-S1 level the target point was at the 6 o'clock position of L5 pedicle in the Rt oblique view. The correct view was obtained by squaring off the L vertebra on the AP view of fluoroscopy then the C-arm was tilted to the Rt oblique position to an angle at which the superior articular process of the lower vertebra would point to the middle of the pedicle above it at the 6 o'clock position as mentioned above . Then I used 3-1/2 inch 22-gauge Quincke spinal needle to get to the target point mentioned above by touching the inferior edge of the L5 pedicle and then walking off the bone and into the superior part of the L5-S1 foramen using the lateral view of fluoroscopy. I then injected 1 mL of Isovue contrast dye which showed typical epidurogram around the L5 nerve root and into the epidural space. Then I injected 1 mL of Ropivacaine 0.5% +10 mg of Decadron. Patient tolerated procedure well,and was transferred to PACU in stable condition.
[2018-08-04 09:23] VITALS: RESP 18
[2018-08-04 09:35] VITALS: BP 126/69; PULSE 89
--- NOTE | 2018-08-04 09:59 | FL ---
EXAMINATION TYPE: FL guided pain mgmt statistic DATE OF EXAM: 08/04/2018 CLINICAL HISTORY: Right transforminal pain TECHNIQUE: Fluoroscopy. COMPARISON: None. FINDINGS: Fluoroscopic guidance was provided during procedure performed by Dr. Aviles. A total of 6 seconds of fluoroscopic time was utilized during the procedure and 2 spot images was acquired. IMPRESSION: As Above.
== END ==
LOC: ORPAIN 08:23
PROVIDERS: ATTEND Anesthesiology
DX: M54.16 Radiculopathy, lumbar region (principal); M96.1 Postlaminectomy syndrome, not elsewhere classified; Z79.899 Other long term (current) drug therapy
CPT/HCPCS: 64483; 81025

== ENCOUNTER → 2018-08-20 | Outpatient (CLI) | payer OTHER ==
[2018-08-20 11:57] VITALS: BP 134/85; PULSE 88; RESP 16
--- NOTE | 2018-08-21 06:07 | P.PN ---
Subjective Progress Note Date: 08/20/18 This is for visit for this 48 years old female with a history of failed back surgery syndrome and lumbar area, and lumbar radiculopathy, previously we have done a caudal epidural steroid injection with lysis of epidural adhesions, and that improved the low back pain, patient continued to have right lower extremity numbness and tingling sensation then later on we did transforaminal epidural steroid injection at right-sided L5-S1 ,X2 , and patient reported that the pain improved significantly currently she had no pain or numbness and she is very satisfied with the results of the interventional pain management, she continued to use Motrin when necessary she denies any side effects of the medication Objective - Vital Signs Vital signs: Vital Signs Temp Pulse 88 08/20/18 11:52 Resp 16 08/20/18 11:52 BP 134/85 08/20/18 11:52 Pulse Ox 98 08/20/18 11:52 Intake & Output 08/20/18 08/20/18 08/21/18 06:59 18:59 06:59 Weight 58.967 kg - Exam Physical Examinations : -Constitutiona : Cooperative , not in acute distress . -HEENT : nech ; supple , no Lymphadenopathy , normal thyroid size . eyes : no ptosis , no icterus, no photophobia . - musculoskeltal : Lumber spine moter stegnth lower extremities ,thigh and legs 5/5 Right side , 5/5 Left side Assessment and Plan Plan: Assessment and plan= failed back surgery syndrome lumbar area, lumbar radiculopathy. Pain improved after caudal epidural steroid injection with lysis of epidural adhesions, and after the transforaminal epidural steroid injection Currently patient reports she had no pain and had no motor or sensory deficit, she will follow up with the pain clinic when necessary - PQRS measures = - Patient's medications are documented in the chart. -Tobacco use is positive, and counseling.Given. -Patient's has not received pneumococcal vaccine. -Advanced care planning discussed, patient not eligible. -Opiate contract not signed. -Pain negative and follow up when necessary -Patient's blood pressure measured [ 134/85 ] , and documented in the record ,and patient will follow up with the primary care. -Patient's weight was measured and body mass index [ 23.8 ],within the normal limits and counseling was done. and patient instructed to follow-up with the primary care physician. -Patient was not identified as an unhealthy alcohol user Time with Patient: Less than 30
== END | disposition home or self-care (01) ==
LOC: PNWHC3 11:39
PROVIDERS: ATTEND Specialist
DX: M96.1 Postlaminectomy syndrome, not elsewhere classified (principal); M54.16 Radiculopathy, lumbar region; Z72.0 Tobacco use
CPT/HCPCS: 99211

== ENCOUNTER → 2021-11-23 | Outpatient (CLI) | payer OTHER ==
--- NOTE | 2021-11-23 16:39 | US ---
EXAMINATION TYPE: US kidneys/renal and bladder DATE OF EXAM: 11/23/2021 COMPARISON: NONE CLINICAL HISTORY: R31.1 MICRO HEMATURIA. Micro hematuria. EXAM MEASUREMENTS: Right Kidney: 9.7 x 5.3 x 4.1 cm Left Kidney: 10.2 x 5.2 x 6.1 cm Right Kidney: No hydronephrosis or masses seen Left Kidney: Multiple hyperechoic foci with posterior shadowing seen throughout the kidney. Largest m easures: 1.5 x 1.0 x 0.7 cm. Bladder: Appears anechoic. Bilateral Jets seen: Yes Bladder not greatly distended. Scattered hyperechoic foci throughout the left kidney. IMPRESSION: Probable nonobstructing left renal calculi. Consider abdominal KUB x-ray confirmation.
== END | disposition home or self-care (01) ==
LOC: RADUSWWP 15:33
PROVIDERS: ATTEND Urology
DX: R31.1 Benign essential microscopic hematuria (principal)
CPT/HCPCS: 76770